=== PATIENT | female | born 1975 | race Caucasian/White ===

== ENCOUNTER 2023-12-24 08:11 | Emergency (ER) | payer SELFPAY ==
[2023-12-24] VITALS (13 sets, daily range): BP systolic 123–149; BP diastolic 82–124; PULSE 92–113; RESP 14–22; TEMP 36.9; O2SAT 93–96
--- NOTE | 2023-12-24 08:18 | ECG_ITS ---
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 Measurements Intervals [place] Rate: 109 P: 69 ID: [id number] QRS: -34 QRSD: 89 T: 52 QT: 333 QTc: 449 Interpretive Statements SINUS TACHYCARDIA POSSIBLE LEFT ATRIAL ENLARGEMENT [-0.1mV P-WAVE IN V1/V2] LEFT AXIS DEVIATION [QRS AXIS < -30] LOW QRS VOLTAGE IN PRECORDIAL LEADS [QRS DEFLECTION < 1.0 mV IN CHEST LEADS] POSSIBLE RIGHT VENTRICULAR CONDUCTION DELAY [RSR (QR) IN V1/V2] POSSIBLE ANTERIOR MYOCARDIAL INFARCTION , PROBABLY OLD [30 ms Q WAVE IN V3/V4, OR R < 0.2 mV IN V4] No previous ECG available for comparison Electronically Signed On 12-24-2023 17:20:29 CDT by Yg Moon M.D. [id number]
--- NOTE | 2023-12-24 08:20 | XRR_ITS ---
PROCEDURE INFORMATION: Exam: XR Chest Exam date and time: 12/24/2023 8:47 AM Age: 48 years old Clinical indication: Pain; Angina pectoris; Additional info: Chest pain TECHNIQUE: Imaging protocol: Radiologic exam of the chest. Views: 1 view. COMPARISON: No relevant prior studies available. FINDINGS: Lungs: Minimal lung base atelectasis or scarring. A few minute calcified lung nodules are seen incidentally. No consolidation. Pleural spaces: Unremarkable. No pleural effusion. No pneumothorax. Heart/Mediastinum: Unremarkable. No cardiomegaly. Bones/joints: Unremarkable. XR/XR chest 1V portable [id number] IMPRESSION: No acute findings.
--- NOTE | 2023-12-24 08:35 | ED_ITS ---
HPI - General Adult 2 General: Chief complaint: Chest Pain Stated complaint: Chest pains Time Seen by Provider: 12/24/23 08:19 Source: patient Mode of arrival: ambulatory History of Present Illness: 48-year-old female [facility] complaining of chest discomfort and shortness of breath started last night she feels like she has something poking her in the back. He states she has difficulty with deep breathing. No history of coronary artery disease she denies any productive cough she does smoke 2 packs a day and has a history of COPD she uses Combivent and albuterol. Does have remote history of DVT not currently on any anticoagulants. Onset (ago): hour(s) Associated symptoms: Reports chest pain, cough and short of breath; Deny confusion, diaphoresis, decreased appetite, dyspnea, fevers/chills, headache(s), malaise, nausea, rash, palpitations, seizures, syncope, vomiting or weakness Review of Systems 2 Const: Denies: fever(s), chills, malaise or diaphoresis Card: Reports: chest pain; Denies: palpitations or syncope Resp: Denies: dyspnea GI: Denies: abdominal pain, nausea or vomiting : Denies: dysuria, urinary frequency or urinary urgency Musc: Denies: neck pain or back pain Skin/Breast: Denies: rash Neuro: Denies: headache(s) or confusion Physical Exam 2 Const: GENERAL APPEARANCE: cooperative and comfortable O RIENTATION/CONSCIOUSNESS: Yes awake, Yes oriented to person, Yes oriented to place and Yes oriented to time HENMT: COMMON NORMALS: normocephalic, atraumatic and hearing grossly normal bilaterally HEAD & SCALP: normocephalic and atraumatic Resp: COMMON NORMALS: normal respiratory effort, No retractions, No use of accessory muscles and clear to auscultation bilaterally AUSCULTATION: clear to auscultation bilaterally Cardio: COMMON NORMALS: regular rate, regular rhythm and No murmurs present (Cardio) RATE: regular rate RHYTHM: regular rhythm GI: COMMON NORMALS: Soft to palpation and No hepatosplenomegaly present A USCULTATION: Yes normoactive bowel sounds PALPATION: Yes Soft to palpation, No Tenderness to palpation present (GI), No Guarding due to palpation present (GI) and Yes No hepatosplenomegaly present : COMMON NORMALS: Yes no CVA tenderness BLADDER/KIDNEY EXAM: Yes no CVA tenderness Back/Pelvis: COMMON NORMALS: no CVA tenderness Extremity: COMMON NORMALS: normal to inspection, capillary refill normal, no clubbing, cyanosis or edema, no calf tenderness and no pedal edema Neuro: SENSORIUM/ORIENTATION: Yes oriented to person, Yes oriented to place and Yes oriented to time Skin: COMMON NORMALS: no rashes or lesions noted GENERAL SKIN EXAM: no rashes or lesions noted Course 2 Vital Signs: Vital signs: Vital Signs Temperature 98.4 F 12/24/23 08:20 Pulse Rate 92 12/24/23 12:30 Respiratory Rate 14 12/24/23 12:30 Blood Pressure 131/83 12/24/23 13:00 Pulse Oximetry 94 12/24/23 12:30 Oxygen Delivery Me thod Room Air 12/24/23 08:20 MDM - General Adult Medical Decision Making Labs and imaging reviewed. CT does not show any obstruction or pyelonephritis. White count is 19,000 she has not been running a fever. D-dimer was negative she also complained of some chest discomfort and her cardiac enzymes and EKG were normal. She is given IV fluids will start her on antibiotics given initial dose of ceftriaxone and will discharge her home to start on Cipro tomorrow given diclofenac and promethazine. Return if has further problems cultures were done. Vital signs stable at time of discharge. Medical Records I reviewed the patient's medical records. Lab Data I reviewed the patient's lab results. 12/24/23 08:39 12/24/23 08:39 Radiology Impressions Chest X-Ray 12/24/23 08:20 IMPRESSION: No acute findings. Abdomen/Pelvis CT 12/24/23 11:00 IMPRESSION: 1. Mild bladder wall thickening. Correlation for cystitis. 2. RIGHT ovarian cyst measuring 2.9 cm. No free fluid. 3. Diastases of the rectus abdominous with prior hernia repair. No recurrent hernia. Laboratory Results WBC 19.27 10^3/uL (3.29-11.43) H 12/24/23 08:39 RBC 5.07 10^6/uL (3.85-5.65) 12/24/23 08:39 Hgb 16.40 g/dL (11.27-16.99) 12/24/23 08:39 Hct 47.8 % (36-47) H 12/24/23 08:39 MCV 94.3 fl (85-98) 12/24/23 08:39 MCH 32.3 pg (27-33) 12/24/23 08:39 MCHC 34.3 g/dL (30-55) 12/24/23 08:39 RDW 13.2 % (12.1-15.1) 12/24/23 08:39 Plt Count 357 10^3/cmm (157-399) 12/24/23 08:39 MPV 10.6 fL (7.4-10.4) H 12/24/23 08:39 Neut % (Auto) 70.0 % 12/24/23 08:39 Lymph % (Auto) 18.6 % 12/24/23 08:39 [place] % (Auto) 6.9 % 12/24/23 08:39 Eos % (Auto) 3.3 % 12/24/23 08:39 Baso % (Auto) 0.7 % 12/24/23 08:39 Neut # (Auto) 13.50 10^3/uL (1.8-7.7) H 12/24/23 08:39 Lymph # (Auto) 3.6 10^3/uL (0.8-4.8) 12/24/23 08:39 [place] # (Auto) 1.3 10^3/uL (0.2-0.9) H 12/24/23 08:39 Eos # (Auto) 0.6 10^3/uL (0.0-0.8) 12/24/23 08:39 Baso # (Auto) 0.1 10^3/uL (0.0-0.1) 12/24/23 08:39 Nucleated RBC % (auto) 0 % 12/24/23 08:39 Nucleated RBCs # 0.0 /100WBC 12/24/23 08:39 D-Dimer <= 0.27 ug/mLFEU (0-0.59) 12/24/23 08:39 Sodium 133 mmol/L (136-145) L 12/24/23 08:39 Potassium 4.1 mmol/L (3.5-5.1) 12/24/23 08:39 Chloride 95 mmol/L (98-107) L 12/24/23 08:39 Carbon Dioxide 24 mmol/L (22-29) 12/24/23 08:39 Anion Gap 18.1 (5-19) 12/24/23 08:39 BUN 11 mg/dL (6-20) 12/24/23 08:39 Creatinine 0.7 mg/dL (0.5-0.9) 12/24/23 08:39 GFR Calculation 89.7 mL/min (90-130) L 12/24/23 08:39 Glucose 324 mg/dL (65-115) H 12/24/23 08:39 Calculated Osmolality 288 mOsm/kg (285-295) 12/24/23 08:39 Calcium 9.1 mg/dL (8.5-10.5) 12/24/23 08:39 Total Bilirubin 0.2 mg/dL (0.15-1.2) 12/24/23 08:39 AST 17 U/L (0-32) 12/24/23 08:39 ALT 21 U/L (0-33) 12/24/23 08:39 Alkaline Phosphatase 104 U/L (35-105) 12/24/23 08:39 Troponin T Baseline 8 ng/L (0-10) 12/24/23 08:39 Troponin T 120 Minute 6.48 ng/L (0-10) 12/24/23 10:16 Delta Troponin T -1.52 ABS# (0-10) L 12/24/23 10:16 Total Protein 7.7 g/dL (6.6-8.7) 12/24/23 08:39 Albumin 4.3 g/dL (3.5-5.2) 12/24/23 08:39 Globulin 3.4 g/dL (1.3-4.6) 12/24/23 08:39 Urine Color Yellow (Yellow) 12/24/23 10:03 Urine Appearance Cloudy (CLEAR) A 12/24/23 10:03 Urine pH 6 (5-7) 12/24/23 10:03 Ur Specific [place] 1.020 (1.005-1.030) 12/24/23 10:03 Urine Protein Neg (Negative) 12/24/23 10:03 Urine Glucose (UA) 4+ (Normal) H 12/24/23 10:03 Urine Ketones Negative (Negative) 12/24/23 10:03 Urine Blood Trace (Negative) H 12/24/23 10:03 Urine Nitrate Positive (Negative) H 12/24/23 10:03 Urine Bilirubin Neg (Negative) 12/24/23 10:03 Urine Urobilinogen Norm mg/dL (Negative) 12/24/23 10:03 Ur Leukocyte Esterase Negative (Negative) 12/24/23 10:03 Urine RBC 5-10 /hpf (0-2) H 12/24/23 10:03 Urine WBC 25-40 /hpf (0-5) H 12/24/23 10:03 Ur Squamous Epith Cells 0-4 /hpf (0-5) H 12/24/23 10:03 Amorphous Sediment Not Reportable 12/24/23 10:03 Urine Bacteria 2+ /hpf (NONE) H 12/24/23 10:03 All radiology interpretation(s) finalized by discharge Discharge Plan Discharge Patient Disposition: Home Clinical Impression: Cystitis Condition: Stable Prescriptions: New Cipro 500 mg tablet 500 mg PO Q12H Qty: 20 0RF promethazine 25 mg tablet 25 mg PO Q6H PRN (Reason: nausea and vomiting) Qty: 20 0RF diclofenac sodium 75 mg tablet,delayed release (DR/EC) 75 mg PO Q12H PRN (Reason: pain) Qty: 20 0RF No Action naproxen sodium 220 mg Tablet 220 mg PO Q8H PRN (Reason: Pain) Discharge Orders: Discharge ED (Routine); Ordered 12/24/23 Ordered By: Sorin Hodges Discharge Diet: Usual diet Discharge Activity: Resume usual activity Patient Instructions: Opioid Safety, Pain Management Activity Restrictions/Additional Instructions: Thank you for choosing [facility] for your healthcare needs today. It is very important that you follow up as instructed or that you return to the Emergency Department should you have concerns or if your condition changes or worsens in any way. You were seen in the emergency room for abdominal discomfort. You did have an elevated white count your urine showed signs of infection CT of your abdomen did not show obstruction or stones. Your cardiac enzymes and EKG were normal. No be discharged home with pain medications antibiotics and nausea medicines. If your symptoms worsen or change return to the emergency room Coding Level of Care Code ED New Account Interviewer for Shane Wilson
[2023-12-24 08:49] LABS: Basophils # 0.1 10^3/uL (0.0-0.1); Basophils % 0.7 %; Eosinophils # 0.6 10^3/uL (0.0-0.8); Eosinophils % 3.3 %; Hematocrit 47.8 % (36-47); Lymphocytes # 3.6 10^3/uL (0.8-4.8); Lymphocytes % 18.6 %; Mean Corpuscular HGB Conc 34.3 g/dL (30-55); Mean Corpuscular Hemoglobin 32.3 pg (27-33); Mean Corpuscular Volume 94.3 fl (85-98); Mean Platelet Volume 10.6 fL (7.4-10.4); Monocytes # 1.3 10^3/uL (0.2-0.9); Monocytes % 6.9 %; Nucleated Red Blood Cells % 0 %; Platelet Count 357 10^3/cmm (157-399); Red Blood Count 5.07 10^6/uL (3.85-5.65); Red Cell Distribution Width 13.2 % (12.1-15.1); White Blood Count 19.27 10^3/uL (3.29-11.43)
[2023-12-24 09:04] LABS: D Dimer <= 0.27 ug/mLFEU (0-0.59)
[2023-12-24 09:07] LABS: Alanine Aminotransferase 21 U/L (0-33); Albumin Level 4.3 g/dL (3.5-5.2); Alkaline Phosphatase 104 U/L (35-105); Anion Gap 18.1 (5-19); Aspartate Amino Transferase 17 U/L (0-32); Blood Urea Nitrogen 11 mg/dL (6-20); Calcium 9.1 mg/dL (8.5-10.5); Carbon Dioxide 24 mmol/L (22-29); Chloride 95 mmol/L (98-107); Globulin 3.4 g/dL (1.3-4.6); Glomerular Filtration Rate 89.7 mL/min (90-130); Glucose 324 mg/dL (65-115); Osmolality Calculated 288 mOsm/kg (285-295); Potassium 4.1 mmol/L (3.5-5.1); Sodium 133 mmol/L (136-145); Total Bilirubin 0.2 mg/dL (0.15-1.2); Total Protein 7.7 g/dL (6.6-8.7); Troponin(5th) Baseline 8 ng/L (0-10)
[2023-12-24 10:49] LABS: Troponin 5 2HR 6.48 ng/L (0-10)
[2023-12-24 10:51] LABS: Troponin 5 2HR Delta -1.52 ABS# (0-10)
[2023-12-24 10:55] LABS: Add Urine Microscopic? YES; Bilirubin Urine Neg (Negative); Blood Urine Trace (Negative); Glucose Urine UA 4+ (Normal); Ketones Urine Negative (Negative); Leukocyte Esterase Urine Negative (Negative); Nitrate Urine Positive (Negative); Protein Urine Neg (Negative); Urine Appearance Cloudy (CLEAR); Urine Color Yellow (Yellow); Urobilinogen Urine Norm (Negative); pH Urine 6 (5-7)
[2023-12-24 10:56] LABS: Add Urine Culture? Yes; Bacteria Urine 2+ /hpf; Squamous Epithelial Cell Urine 0-4 /hpf (0-5); WBC Urine 25-40 /hpf (0-5)
--- NOTE | 2023-12-24 11:00 | CT_ITS ---
WS: [id number] CT ABDOMEN PELVIS TECHNIQUE: Noncontrast CT of the abdomen and pelvis with coronal and sagittal reformatted images. CLINICAL INFORMATION: flank pain COMPARISON: None. DLP: 845.[address] scans at [facility] use at least one of these dose optimization techniques: automated e xposure control; mA and/or kV adjustment per patient size (includes targeted exams where dose is matc hed to clinical indication); or iterative reconstruction. FINDINGS: Lung bases are well aerated. Hepatomegaly. Air-fluid levels in the stomach. Fluid distended stomach. No evidence of small or large bowel obstruction. Noncontrast spleen. Normal noncontrast pancreas. Gal lbladder is contracted. Normal caliber abdominal aorta. Adrenal glands are normal. No hydronephrosis in either kidney. No obstructing renal or ureteral calculi. A few pelvic phleboliths. Mild vascular c alcification. Normal sigmoid colon. Evidence of prior appendectomy. No free fluid in the abdomen or pelvis. Mild bl adder wall thickening. Recommend correlation for cystitis. Anteverted uterus with endometrial thicken ing. This is likely physiologic in a patient this age. RIGHT ovarian cyst measuring 2.9 cm. No free f luid. Smaller LEFT ovarian cyst. Diastases the rectus abdominis with evidence of prior hernia repair. No evidence of entrapped bowel. No visualized recurrent hernia. CT/CT kidney stone [id number] IMPRESSION: 1. Mild bladder wall thickening. Correlation for cystitis. 2. RIGHT ovarian cyst measuring 2.9 cm. No free fluid. 3. Diastases of the rectus abdominous with prior hernia repair. No recurrent h ernia.
[2023-12-24] MEDS: cefTRIAXone 1,000 MG in sodium chloride 0.9% (plus) 50 ML 100 MG IV (11:05)
[2023-12-24] MEDS: morphine 4 mg/mL SDV 1 mL 2 MG IVP (11:26)
[2023-12-24] MEDS: metoclopramide 5 mg/mL SDV 2 mL 10 MG IVP (11:26)
--- NOTE | 2023-12-24 11:28 | ECG_ITS ---
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 Measurements Intervals [place] Rate: 101 P: 72 HI: 152 QRS: -39 QRSD: 92 T: 60 QT: 340 QTc: 442 Interpretive Statements SINUS TACHYCARDIA LEFT AXIS DEVIATION [QRS AXIS < -30] LOW QRS VOLTAGE IN PRECORDIAL LEADS [QRS DEFLECTION < 1.0 mV IN CHEST LEADS] POSSIBLE RIGHT VENTRICULAR CONDUCTION DELAY [RSR (QR) IN V1/V2] Compared to ECG 12/24/2023 08:18:16 Myocardial infarct finding no longer present Electronically Signed On 12-24-2023 17:23:48 CDT by Yg Moon M.D. [id number]
== END 2023-12-24 13:35 | disposition home or self-care (01) ==
PROVIDERS: Emergency Provider Family Medicine
DX: N30.90 Cystitis, unspecified without hematuria (principal); R07.89 Other chest pain; J44.9 Chronic obstructive pulmonary disease, unspecified; Z79.899 Other long term (current) drug therapy; F17.210 Nicotine dependence, cigarettes, uncomplicated
CPT/HCPCS: 36415; 71045; 74176; 80053; 81001; 84484; 85025; 85378; 87077; 87086; 87186; 93005; 96374; 96375; 99285; J0696; J2270; J2765

== ENCOUNTER 2024-03-04 01:22 | Emergency (ER) | payer SELFPAY ==
[2024-03-04 01:41] VITALS: BP 147/94; PULSE 94; RESP 18; TEMP 36.7; O2SAT 95; BMI 33.6
[2024-03-04 02:00] VITALS: BP 144/94; PULSE 100; RESP 12; O2SAT 94
--- NOTE | 2024-03-04 02:01 | XRR_ITS ---
PROCEDURE INFORMATION: Exam: XR Chest Exam date and time: 03/04/2024 2:18 AM Age: 48 years old Clinical indication: Dyspnea; Additional info: Chest pain dyspnea TECHNIQUE: Imaging protocol: Radiologic exam of the chest. Views: 1 view. COMPARISON: CR XR chest 1V portable [id number] 12/24/2023 8:47 AM FINDINGS: Lungs: The lung parenchyma is clear. Pleural spaces: No pneumothorax. No large pleural effusion. Heart/Mediastinum: The cardiomediastinal silhouette is within normal limits. Bones/joints: Unremarkable. XR/XR chest 1V portable [id number] IMPRESSION: No acute cardiopulmonary abnormality.
--- NOTE | 2024-03-04 02:02 | ECG_ITS ---
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 Measurements Intervals [place] Rate: 100 P: 64 NE: 168 QRS: -26 QRSD: 91 T: 22 QT: 361 QTc: 466 Interpretive Statements SINUS TACHYCARDIA LOW QRS VOLTAGE IN PRECORDIAL LEADS [QRS DEFLECTION < 1.0 mV IN CHEST LEADS] POSSIBLE RIGHT VENTRICULAR CONDUCTION DELAY [RSR (QR) IN V1/V2] POSSIBLE ANTERIOR MYOCARDIAL INFARCTION , PROBABLY OLD [30 ms Q WAVE IN V3/V4, OR R < 0.2 mV IN V4] ABNORMAL RHYTHM ECG Compared to ECG 12/24/2023 11:28:20 Myocardial infarct finding now present Left-axis deviation no longer present Electronically Signed On 03-05-2024 0:16:04 CDT by Sarina Selby M.D. [id number]
--- NOTE | 2024-03-04 02:02 | ED_ITS ---
HPI - SOB/Dyspnea 2 General: Chief Complaint: Shortness of Breath/Dyspnea Stated Complaint: SOB Time Seen by Provider: 03/04/24 01:41 History of Present Illness: HPI Narrative: Patient presents to the ER complaining of shortness of breath for the last couple days. She thinks an abscessed tooth popped in her mouth when she aspirated the infection and she been going downhill ever since. Patient also states she has been having some chest pressure that feels like an elephant sitting on her chest. Patient did borrow one of her neighbors inhalers and took a couple puffs off of it which seemed to help slightly. Related Data Home Medications Medication Instructions Recorded Confirmed naproxen sodium 220 mg tablet 220 mg PO Q8H PRN Pain 12/24/23 12/24/23 Previous Rx's Medication Instructions Recorded diclofenac sodium 75 mg 75 mg PO Q12H PRN pain #20 tabs 12/24/23 tablet,delayed release promethazine 25 mg tablet 25 mg PO Q6H PRN nausea and 12/24/23 vomiting #20 tabs cephalexin 500 mg capsule 500 mg PO Q6H 7 days #28 caps 03/04/24 Allergies Allergy/AdvReac Type Severity Reaction Status Date / Time banks erwin Allergy ADR-Vomitin Verified 03/04/24 01:45 g ondansetron [From Zofran] Allergy ADR-Vomitin Verified 03/04/24 01:45 g piperacillin Allergy Unknown Verified 03/04/24 01:45 red dye Allergy ALGY-Hives Verified 03/04/24 01:45 paper tape Allergy Unknown Uncoded 03/04/24 01:45 Review of Systems 2 General: Reports: 10 or more systems reviewed and unremarkable except in HPI and below [facility] ED 2 Female Reproductive History: Date of last menstrual period: 02/12/24 Physical Exam 2 Const: COMMON NORMALS: no acute distress, average body habitus, patient oriented x3, no limitations, healthy appearing, alert and well nourished HENMT: COMMON NORMALS: normocephalic, atraumatic, hearing grossly normal bilaterally, external ears normal, Normal external nose present and moist oral mucous membranes HEAD & SCALP: normocephalic and atraumatic NOSE: Normal external nose present EXTERNAL EAR: Yes external ears normal Neck/C-Spine: COMMON NORMALS: no JVD Chest: COMMONS NORMALS: normal inspection of the chest and normal palpation of entire chest wall Resp: COMMON NORMALS: normal respiratory effort, No retractions and No use of accessory muscles; negative for clear to auscultation bilaterally (Occasional wheeze bilaterally) AUSCULTATION: not clear to auscultation bilaterally (Occasional wheeze bilaterally) Cardio: COMMON NORMALS: no JVD, regular rate, regular rhythm, S1 normal heart sound present, S2 normal heart sound present, No gallops present (Cardio), No clicks present (Cardio), No murmurs present (Cardio) and No rub (Cardio) R ATE: regular rate RHYTHM: regular rhythm HEART SOUNDS: S1 normal heart sound present and S2 normal heart sound present GI: COMMON NORMALS: Normal to inspection, nondistended, normoactive bowel sounds present, Soft to palpation, non-tender, No hepatosplenomegaly present and no masses PALPATION: Yes Soft to palpation and Yes No hepatosplenomegaly present Neuro: COMMON NORMALS: patient oriented x3 SENSORIUM/ORIENTATION: Yes alert Course 2 Vital Signs: Vital signs: Vital Signs Temperature 98.0 F 03/04/24 01:41 Pulse Rate 96 03/04/24 04:01 Respiratory Rate 14 03/04/24 04:01 Blood Pressure 137/86 03/04/24 04:01 Pulse Oximetry 92 03/04/24 04:01 Oxygen Delivery Me thod Room Air 03/04/24 01:41 MDM - SOB/Dyspnea Medical Decision Making Patient had lab work that included CBC CMP cardiac enzymes, troponin, EKG, chest x-ray all which were essentially benign. Patient will be given a dose of Keflex while she is here and a prescription sent to her pharmacy. Differential Diagnosis Likely acute exacerbation of chronic obstructive airways disease Medical Records I reviewed the patient's medical records. Lab Data I reviewed the patient's lab results. 03/04/24 02:10 03/04/24 02:31 Labs/Radiology: Radiology Impressions Chest X-Ray 03/04/24 02:01 IMPRESSION: No acute cardiopulmonary abnormality. Laboratory Results WBC 10.65 10^3/uL (3.29-11.43) 03/04/24 02:10 RBC 4.69 10^6/uL (3.85-5.65) 03/04/24 02:10 Hgb 15.40 g/dL (11.27-16.99) 03/04/24 02:10 Hct 45.0 % (36-47) 03/04/24 02:10 MCV 95.9 fl (85-98) 03/04/24 02:10 MCH 32.8 pg (27-33) 03/04/24 02:10 MCHC 34.2 g/dL (30-55) 03/04/24 02:10 RDW 13.0 % (12.1-15.1) 03/04/24 02:10 Plt Count 239 10^3/cmm (157-399) 03/04/24 02:10 MPV 11.2 fL (7.4-10.4) H 03/04/24 02:10 Neut % (Auto) 43.5 % 03/04/24 02:10 Lymph % (Auto) 37.3 % 03/04/24 02:10 [place] % (Auto) 9.9 % 03/04/24 02:10 Eos % (Auto) 7.8 % 03/04/24 02:10 Baso % (Auto) 1.2 % 03/04/24 02:10 Neut # (Auto) 4.64 10^3/uL (1.8-7.7) 03/04/24 02:10 Lymph # (Auto) 4.0 10^3/uL (0.8-4.8) 03/04/24 02:10 [place] # (Auto) 1.1 10^3/uL (0.2-0.9) H 03/04/24 02:10 Eos # (Auto) 0.8 10^3/uL (0.0-0.8) 03/04/24 02:10 Baso # (Auto) 0.1 10^3/uL (0.0-0.1) 03/04/24 02:10 Nucleated RBC % (auto) 0 % 03/04/24 02:10 Nucleated RBCs # 0.0 /100WBC 03/04/24 02:10 Sodium 136 mmol/L (136-145) 03/04/24 02:31 Potassium 3.8 mmol/L (3.5-5.1) 03/04/24 02:31 Chloride 101 mmol/L (98-107) 03/04/24 02:31 Carbon Dioxide 24 mmol/L (22-29) 03/04/24 02:31 Anion Gap 14.8 (5-19) 03/04/24 02:31 BUN 20 mg/dL (6-20) 03/04/24 02:31 Creatinine 0.7 mg/dL (0.5-0.9) 03/04/24 02:31 GFR Calculation 89.7 mL/min (90-130) L 03/04/24 02:31 Glucose 236 mg/dL (65-115) H 03/04/24 02:31 Calculated Osmolality 292 mOsm/kg (285-295) 03/04/24 02:31 Calcium 8.8 mg/dL (8.5-10.5) 03/04/24 02:31 Total Bilirubin 0.2 mg/dL (0.15-1.2) 03/04/24 02:31 AST 15 U/L (0-32) 03/04/24 02:31 ALT 22 U/L (0-33) 03/04/24 02:31 Alkaline Phosphatase 100 U/L (35-105) 03/04/24 02:31 Troponin T Baseline < 6 ng/L (0-10) 03/04/24 02:10 Troponin T 120 Minute 6.00 ng/L (0-10) 03/04/24 04:03 Delta Troponin T 0.17920 ABS# (0-10) 03/04/24 04:03 Total Protein 7.2 g/dL (6.6-8.7) 03/04/24 02:31 Albumin 4.0 g/dL (3.5-5.2) 03/04/24 02:31 Globulin 3.2 g/dL (1.3-4.6) 03/04/24 02:31 All radiology interpretation(s) finalized by discharge Discharge Plan Discharge Patient Disposition: Home Clinical Impression: Abscess, dental Chest pain Qualifiers: Chest pain type: unspecified Qualified Code(s): R07.9 - Chest pain, unspecified Condition: Stable Prescriptions: New cephalexin 500 mg capsule 500 mg PO Q6H 7 Days Qty: 28 0RF Discontinued ciprofloxacin HCl [Cipro] 500 mg tablet 500 mg PO Q12H Qty: 20 0RF No Action naproxen sodium 220 mg Tablet 220 mg PO Q8H PRN (Reason: Pain) promethazine 25 mg tablet 25 mg PO Q6H PRN (Reason: nausea and vomiting) Qty: 20 0RF diclofenac sodium 75 mg tablet,delayed release (DR/EC) 75 mg PO Q12H PRN (Reason: pain) Qty: 20 0RF Discharge Orders: Discharge ED (Routine); Ordered 03/04/24 Ordered By: Bakari Barrios Patient Instructions: Chest Pain (ED), Dental Abscess (ED) Activity Restrictions/Additional Instructions: Please take all your antibiotics as prescribed. Please follow-up with your family practitioner within next 7 to 10 days for further evaluation and treatment. Your lab work did not reveal any acute cardiac cause of your chest pain. Your chest pain is felt to be noncardiac in nature. Coding Level of Care Code ED Business Services Sales Agent for Shane Wilson
[2024-03-04 02:14] LABS: Basophils # 0.1 10^3/uL (0.0-0.1); Basophils % 1.2 %; Eosinophils # 0.8 10^3/uL (0.0-0.8); Eosinophils % 7.8 %; Lymphocytes % 37.3 %; Mean Corpuscular HGB Conc 34.2 g/dL (30-55); Mean Corpuscular Hemoglobin 32.8 pg (27-33); Mean Corpuscular Volume 95.9 fl (85-98); Mean Platelet Volume 11.2 fL (7.4-10.4); Monocytes # 1.1 10^3/uL (0.2-0.9); Monocytes % 9.9 %; Neutrophils # 4.64 10^3/uL (1.8-7.7); Neutrophils % 43.5 %; Nucleated Red Blood Cells % 0 %; Platelet Count 239 10^3/cmm (157-399); Red Blood Count 4.69 10^6/uL (3.85-5.65); White Blood Count 10.65 10^3/uL (3.29-11.43)
[2024-03-04 02:38] LABS: Troponin(5th) Baseline < 6 ng/L (0-10)
[2024-03-04 02:59] LABS: Alanine Aminotransferase 22 U/L (0-33); Alkaline Phosphatase 100 U/L (35-105); Anion Gap 14.8 (5-19); Aspartate Amino Transferase 15 U/L (0-32); Blood Urea Nitrogen 20 mg/dL (6-20); Calcium 8.8 mg/dL (8.5-10.5); Carbon Dioxide 24 mmol/L (22-29); Chloride 101 mmol/L (98-107); Creatinine Clr Calc Pharmacy 111.1255; Globulin 3.2 g/dL (1.3-4.6); Glomerular Filtration Rate 89.7 mL/min (90-130); Glucose 236 mg/dL (65-115); Osmolality Calculated 292 mOsm/kg (285-295); Potassium 3.8 mmol/L (3.5-5.1); Sodium 136 mmol/L (136-145); Total Bilirubin 0.2 mg/dL (0.15-1.2); Total Protein 7.2 g/dL (6.6-8.7)
[2024-03-04 03:00] VITALS: BP 138/81; PULSE 95; RESP 14; O2SAT 94
[2024-03-04 03:30] VITALS: BP 124/67; PULSE 91; RESP 14; O2SAT 92
[2024-03-04 04:01] VITALS: BP 137/86; PULSE 96; RESP 14; O2SAT 92
--- NOTE | 2024-03-04 04:02 | ECG_ITS ---
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 Measurements Intervals [place] Rate: 88 P: 60 IA: 179 QRS: -26 QRSD: 98 T: 42 QT: 374 QTc: 454 Interpretive Statements SINUS RHYTHM LOW QRS VOLTAGE IN PRECORDIAL LEADS [QRS DEFLECTION < 1.0 mV IN CHEST LEADS] INCOMPLETE RIGHT BUNDLE BRANCH BLOCK [90+ ms QRS DURATION, TERMINAL R IN V1/V2, 40+ ms S IN I/aVL/V4/V5/V6] POSSIBLE ANTERIOR MYOCARDIAL INFARCTION , PROBABLY OLD [30 ms Q WAVE IN V3/V4, OR R < 0.2 mV IN V4] Compared to ECG 03/04/2024 02:12:30 Incomplete right bundle-branch block now present Sinus tachycardia no longer present Myocardial infarct finding still present Electronically Signed On 03-05-2024 0:21:42 CDT by Sarina Selby M.D. [id number]
[2024-03-04 04:30] VITALS: BP 153/94; PULSE 93; RESP 16; O2SAT 93
[2024-03-04 04:36] LABS: Troponin 5 2HR Delta 0.00001 ABS# (0-10)
[2024-03-04] MEDS: cephALEXin 500 mg Capsule PO (04:49)
== END 2024-03-04 04:52 | disposition home or self-care (01) ==
PROVIDERS: Emergency Provider Emergency Medicine
DX: K04.7 Periapical abscess without sinus (principal); R07.9 Chest pain, unspecified
CPT/HCPCS: 36415; 71045; 80053; 84484; 85025; 93005; 99285

== ENCOUNTER 2024-04-26 12:43 | Emergency (ER) | payer SELFPAY ==
--- NOTE | 2024-04-26 14:20 | CTR_ITS ---
PROCEDURE INFORMATION: Exam: CT Abdomen And Pelvis With Contrast Exam date and time: 04/26/2024 4:14 PM Age: 48 years old Clinical indication: Abdominal pain; Localized; Right upper quadrant (ruq); TECHNIQUE: Imaging protocol: Computed tomography of the abdomen and pelvis with contrast. Radiation optimization: All CT scans at this facility use at least one of these dose optimization techniques: automated exposure control; mA and/or kV adjustment per patient size (includes targeted exams where dose is matched to clinical indication); or iterative reconstruction. Contrast material: OMNI 350; Contrast volume: 100 ml; Contrast route: INTRAVENOUS (IV); COMPARISON: CT kidney stone [id number] 12/24/2023 11:37 AM RADIATION DOSE METRICS: Total DLP (mGy-cm): 885.43 FINDINGS: Liver: Normal. No mass. Gallbladder and biliary ducts: Normal. No calcified stones. No ductal dilation. Pancreas: Normal. No ductal dilation. Spleen: Normal. No splenomegaly. Adrenal glands: Normal. No mass. Kidneys and ureters: Normal. No hydronephrosis. Stomach and bowel: Moderate stool burden. Appendix: No evidence of appendicitis. Intraperitoneal space: Unremarkable. No free air. No significant fluid collection. Vasculature: Unremarkable. No abdominal aortic aneurysm. Lymph nodes: Unremarkable. No enlarged lymph nodes. Urinary bladder: There is severe bladder wall thickening. Air is present in the bladder which may be iatrogenic in nature. Reproductive: Unremarkable as visualized. Bones/joints: Mild lateral curvature of the lumbar spine with convexity to the left. There are degenerative changes in the visualized spine. Soft tissues: Diastasis of the rectus abdominis. Large and small bowel loops extend anteriorly into the region of diastasis without evidence for strangulation or obstruction. CT/CT abdomen pelvis w con* [id number] IMPRESSION: 1. The bladder wall is thickened. This is nonspecific and may represent bladder outlet obstruction, inflammation or infection. Neoplastic process is included in the differential. 2. There is air in the bladder which may be iatrogenic in nature. Please correlate clinically.
--- NOTE | 2024-04-26 14:35 | W.ED.ABDPA2 ---
Documented by User: NICHOLE Fried 04/26/24 17:59 HPI - Abdominal Pain General: Chief Complaint: Abdominal Pain Stated Complaint: right abdominal pain radiating to back Time Seen by Provider: 04/26/24 14:10 History of Present Illness: 48-year-old female comes in today for complaints of right upper quadrant abdominal pain radiating to the back. Patient has had prior episodes in the past but not as severe as today. Patient reports pain started today about 8 AM. Patient has had some nausea without vomiting. Patient does have a history of kidney stones, ovarian cyst, endometriosis, PCOS, and abdominal adhesions. Patient takes routine medications for chronic pain and chronic back pain including naproxen, cyclobenzaprine, marijuana, and loratadine. Patient had her appendix removed and an ovarian cyst removed. Patient does continue to have her gallbladder. Related Data Home Medications Medication Instructions Recorded Confirmed naproxen sodium 220 mg tablet 220 mg PO Q8H PRN Pain 12/24/23 12/24/23 Previous Rx's Medication Instructions Recorded diclofenac sodium 75 mg 75 mg PO Q12H PRN pain #20 tabs 12/24/23 tablet,delayed release promethazine 25 mg tablet 25 mg PO Q6H PRN nausea and 12/24/23 vomiting #20 tabs levofloxacin 500 mg tablet 500 mg PO DAILY 6 days #6 tabs 04/26/24 Allergies Allergy/AdvReac Type Severity Reaction Status Date / Time cephalexin [From Keflex] Allergy ADR-Nausea Verified 04/26/24 13:33 banks erwin Allergy ADR-Vomitin Verified 04/26/24 13:33 g ondansetron [From Zofran] Allergy ADR-Vomitin Verified 04/26/24 13:33 g piperacillin Allergy Unknown Verified 04/26/24 13:33 red dye Allergy ALGY-Hives Verified 04/26/24 13:33 paper tape Allergy Unknown Uncoded 04/26/24 13:33 Review of Systems General: Reports: 10 or more systems reviewed and unremarkable except in HPI and below GI: Reports: abdominal pain Physical Exam Const: COMMON NORMALS: alert HENMT: COMMON NORMALS: normocephalic HEAD & SCALP: normocephalic Neck/C-Spine: COMMON NORMALS: full ROM Resp: COMMON NORMALS: normal respiratory effort GI: COMMON NORMALS: Soft to palpation PALPATION: Yes Soft to palpation and Yes Tenderness to palpation present (GI) Details: RUQ : BLADDER/KIDNEY EXAM: Yes CVA tenderness on the right Back/Pelvis: GENERAL BACK: Yes CVA tenderness Extremity: COMMON NORMALS: normal to inspection Neuro: SENSORIUM/ORIENTATION: Yes alert Skin: COMMON NORMALS: turgor normal GENERAL SKIN EXAM: turgor normal Course Vital Signs: Vital signs: Vital Signs Pulse Rate 89 04/26/24 18:28 Respiratory Rate 16 04/26/24 18:18 Blood Pressure 141/85 04/26/24 18:28 Pulse Oximetry 94 04/26/24 18:28 MDM - Abdominal Pain Medical Decision Making 48-year-old female comes in today with right upper quadrant abdominal pain starting this morning around 8 AM. Patient reports increased pain with movement. Patient states pain radiates to her right shoulder blade. Differential diagnosis includes but not limited to gallbladder disease, renal calculi, pancreatitis, hiatal hernia, GERD. CBC noted 12,000 white blood cell count. CMP was unremarkable. Urinalysis had increased leukocyte esterases and white blood cells. Urinalysis also had increased bacteria. CT of the abdomen and pelvis noted no significant abnormalities except bladder wall thickening with recommendations for follow-up with urology for abnormality. Reviewed this with patient and agreed with plan and recommendations. Lab Data 04/26/24 14:33 04/26/24 14:33 Labs/Radiology: Radiology Impressions Abdomen/Pelvis CT 04/26/24 14:20 IMPRESSION: 1. The bladder wall is thickened. This is nonspecific and may represent bladder outlet obstruction, inflammation or infection. Neoplastic process is included in the differential. 2. There is air in the bladder which may be iatrogenic in nature. Please correlate clinically. Laboratory Results WBC 12.55 10^3/uL (3.29-11.43) H 04/26/24 14:33 RBC 4.77 10^6/uL (3.85-5.65) 04/26/24 14:33 Hgb 15.70 g/dL (11.27-16.99) 04/26/24 14:33 Hct 45.3 % (36-47) 04/26/24 14:33 MCV 95.0 fl (85-98) 04/26/24 14: MCH 32.9 pg (27-33) 04/26/24 14:33 MCHC 34.7 g/dL (30-55) 04/26/24 14:33 RDW 12.2 % (12.1-15.1) 04/26/24 14:33 Plt Count 319 10^3/cmm (157-399) 04/26/24 14:33 MPV 10.3 fL (7.4-10.4) 04/26/24 14:33 Neut % (Auto) 51.7 % 04/26/24 14:33 Lymph % (Auto) 33.4 % 04/26/24 14:33 Alfalfa % (Auto) 8.6 % 04/26/24 14:33 Eos % (Auto) 5.5 % 04/26/24 14:33 Baso % (Auto) 0.6 % 04/26/24 14: Neut # (Auto) 6.49 10^3/uL (1.8-7.7) 04/26/24 14:33 Lymph # (Auto) 4.2 10^3/uL (0.8-4.8) 04/26/24 14:33 Alfalfa # (Auto) 1.1 10^3/uL (0.2-0.9) H 04/26/24 14:33 Eos # (Auto) 0.7 10^3/uL (0.0-0.8) 04/26/24 14:33 Baso # (Auto) 0.1 10^3/uL (0.0-0.1) 04/26/24 14:33 Nucleated RBC % (auto) 0 % 04/26/24 14:33 Nucleated RBCs # 0.0 /100WBC 04/26/24 14:33 Sodium 135 mmol/L (136-145) L 04/26/24 14:33 Potassium 3.9 mmol/L (3.5-5.1) 04/26/24 14:33 Chloride 99 mmol/L (98-107) 04/26/24 14:33 Carbon Dioxide 24 mmol/L (22-29) 04/26/24 14:33 Anion Gap 15.9 (5-19) 04/26/24 14:33 BUN 17 mg/dL (6-20) 04/26/24 14:33 Creatinine 0.6 mg/dL (0.5-0.9) 04/26/24 14:33 GFR Calculation 107.2 mL/min (90-130) 04/26/24 14:33 Glucose 179 mg/dL (65-115) H 04/26/24 14:33 Calculated Osmolality 286 mOsm/kg (285-295) 04/26/24 14:33 Calcium 9.1 mg/dL (8.5-10.5) 04/26/24 14:33 Total Bilirubin 0.2 mg/dL (0.15-1.2) 04/26/24 14:33 AST 19 U/L (0-32) 04/26/24 14:33 ALT 21 U/L (0-33) 04/26/24 14:33 Alkaline Phosphatase 94 U/L (35-105) 04/26/24 14:33 Total Protein 7.7 g/dL (6.6-8.7) 04/26/24 14:33 Albumin 4.3 g/dL (3.5-5.2) 04/26/24 14:33 Globulin 3.4 g/dL (1.3-4.6) 04/26/24 14:33 Lipase 67 U/L (13-60) H 04/26/24 14:33 HCG, Qual Negative (Negative) 04/26/24 14:33 Urine Color Yellow (Yellow) 04/26/24 13:38 Urine Appearance Clear (CLEAR) 04/26/24 13:38 Urine pH 6.0 (5-7) 04/26/24 13:38 Ur Specific [place] 1.020 (1.005-1.030) 04/26/24 13:38 Urine Protein Trace (Negative) A 04/26/24 13:38 Urine Glucose (UA) Negative (Normal) 04/26/24 13:38 Urine Ketones Negative (Negative) 04/26/24 13:38 Urine Blood Negative (Negative) 04/26/24 13:38 Urine Nitrate Negative (Negative) 04/26/24 13:38 Urine Bilirubin Negative (Negative) 04/26/24 13:38 Urine Urobilinogen 1.0 mg/dL (Negative) 04/26/24 13:38 Ur Leukocyte Esterase Trace (Negative) A 04/26/24 13:38 Urine RBC 0-2 /hpf (0-2) 04/26/24 13:38 Urine WBC 6-10 /hpf (0-5) 04/26/24 13:38 Ur Squamous Epith Cells 6-10 /hpf (0-5) 04/26/24 13:38 Amorphous Sediment Not Reportable 04/26/24 13:38 Urine Bacteria 4+ /hpf (NONE) H 04/26/24 13:38 Hyaline Casts 0.40 /lpf 04/26/24 13:38 All radiology interpretation(s) finalized by discharge Discharge Plan Discharge Patient Disposition: Home Clinical Impression: Cystitis Condition: Stable Prescriptions: New levofloxacin 500 mg tablet 500 mg PO DAILY 6 Days Qty: 6 0RF No Action naproxen sodium 220 mg Tablet 220 mg PO Q8H PRN (Reason: Pain) promethazine 25 mg tablet 25 mg PO Q6H PRN (Reason: nausea and vomiting) Qty: 20 0RF diclofenac sodium 75 mg tablet,delayed release (DR/EC) 75 mg PO Q12H PRN (Reason: pain) Qty: 20 0RF Discharge Orders: Discharge ED (Routine); Ordered 04/26/24 Ordered By: Sp Hope Discharge Diet: Usual diet Discharge Activity: Increase activity as tolerated Patient Instructions: Urinary Tract Infection in Women (ED) Activity Restrictions/Additional Instructions: Drink plenty of water and fluids. Take antibiotic as directed. Follow-up with urologist for further evaluation of abnormal CT scan. Stand Alone Forms: Work/School Release Coding Level of Care Code ED [employer] for [employer] Documented by User: Davon Dunbar DO 04/26/24 18:31 HPI - Abdominal Pain General: Chief Complaint: Abdominal Pain Stated Complaint: right abdominal pain radiating to back Time Seen by Provider: 04/26/24 14:10 Related Data Home Medications Medication Instructions Recorded Confirmed naproxen sodium 220 mg tablet 220 mg PO Q8H PRN Pain 12/24/23 12/24/23 Previous Rx's Medication Instructions Recorded diclofenac sodium 75 mg 75 mg PO Q12H PRN pain #20 tabs 12/24/23 tablet,delayed release promethazine 25 mg tablet 25 mg PO Q6H PRN nausea and 12/24/23 vomiting #20 tabs levofloxacin 500 mg tablet 500 mg PO DAILY 6 days #6 tabs 04/26/24 Allergies Allergy/AdvReac Type Severity Reaction Status Date / Time cephalexin [From Keflex] Allergy ADR-Nausea Verified 04/26/24 13:33 banks erwin Allergy ADR-Vomitin Verified 04/26/24 13:33 g ondansetron [From Zofran] Allergy ADR-Vomitin Verified 04/26/24 13:33 g piperacillin Allergy Unknown Verified 04/26/24 13:33 red dye Allergy ALGY-Hives Verified 04/26/24 13:33 paper tape Allergy Unknown Uncoded 04/26/24 13:33 Course Vital Signs: Vital signs: Vital Signs Pulse Rate 89 04/26/24 18:28 Respiratory Rate 16 04/26/24 18:18 Blood Pressure 141/85 04/26/24 18:28 Pulse Oximetry 94 04/26/24 18:28 MDM - Abdominal Pain Medical Decision Making 48-year-old female comes in today with right upper quadrant abdominal pain starting this morning around 8 AM. Patient reports increased pain with movement. Patient states pain radiates to her right shoulder blade. Differential diagnosis includes but not limited to gallbladder disease, renal calculi, pancreatitis, hiatal hernia, GERD. CBC noted 12,000 white blood cell count. CMP was unremarkable. Urinalysis had increased leukocyte esterases and white blood cells. Urinalysis also had increased bacteria. CT of the abdomen and pelvis noted no significant abnormalities except bladder wall thickening with recommendations for follow-up with urology for abnormality. Reviewed this with patient and agreed with plan and recommendations. This patient was originally seen by NICHOLE Wilcox.? I agree with his history, evaluation, and treatment. Lab Data 04/26/24 14:33 04/26/24 14:33 Labs/Radiology: Radiology Impressions Abdomen/Pelvis CT 04/26/24 14:20 IMPRESSION: 1. The bladder wall is thickened. This is nonspecific and may represent bladder outlet obstruction, inflammation or infection. Neoplastic process is included in the differential. 2. There is air in the bladder which may be iatrogenic in nature. Please correlate clinically. Laboratory Results WBC 12.55 10^3/uL (3.29-11.43) H 04/26/24 14:33 RBC 4.77 10^6/uL (3.85-5.65) 04/26/24 14:33 Hgb 15.70 g/dL (11.27-16.99) 04/26/24 14:33 Hct 45.3 % (36-47) 04/26/24 14:33 MCV 95.0 fl (85-98) 04/26/24 14: MCH 32.9 pg (27-33) 04/26/24 14: MCHC 34.7 g/dL (30-55) 04/26/24 14:33 RDW 12.2 % (12.1-15.1) 04/26/24 14:33 Plt Count 319 10^3/cmm (157-399) 04/26/24 14: MPV 10.3 fL (7.4-10.4) 04/26/24 14:33 Neut % (Auto) 51.7 % 04/26/24 14: Lymph % (Auto) 33.4 % 04/26/24 14:33 Alfalfa % (Auto) 8.6 % 04/26/24 14:33 Eos % (Auto) 5.5 % 04/26/24 14:33 Baso % (Auto) 0.6 % 04/26/24 14: Neut # (Auto) 6.49 10^3/uL (1.8-7.7) 04/26/24 14:33 Lymph # (Auto) 4.2 10^3/uL (0.8-4.8) 04/26/24 14:33 Alfalfa # (Auto) 1.1 10^3/uL (0.2-0.9) H 04/26/24 14:33 Eos # (Auto) 0.7 10^3/uL (0.0-0.8) 04/26/24 14:33 Baso # (Auto) 0.1 10^3/uL (0.0-0.1) 04/26/24 14: Nucleated RBC % (auto) 0 % 04/26/24 14: Nucleated RBCs # 0.0 /100WBC 04/26/24 14:33 Sodium 135 mmol/L (136-145) L 04/26/24 14:33 Potassium 3.9 mmol/L (3.5-5.1) 04/26/24 14:33 Chloride 99 mmol/L (98-107) 04/26/24 14:33 Carbon Dioxide 24 mmol/L (22-29) 04/26/24 14:33 Anion Gap 15.9 (5-19) 04/26/24 14:33 BUN 17 mg/dL (6-20) 04/26/24 14:33 Creatinine 0.6 mg/dL (0.5-0.9) 04/26/24 14:33 GFR Calculation 107.2 mL/min (90-130) 04/26/24 14:33 Glucose 179 mg/dL (65-115) H 04/26/24 14:33 Calculated Osmolality 286 mOsm/kg (285-295) 04/26/24 14:33 Calcium 9.1 mg/dL (8.5-10.5) 04/26/24 14:33 Total Bilirubin 0.2 mg/dL (0.15-1.2) 04/26/24 14:33 AST 19 U/L (0-32) 04/26/24 14:33 ALT 21 U/L (0-33) 04/26/24 14:33 Alkaline Phosphatase 94 U/L (35-105) 04/26/24 14:33 Total Protein 7.7 g/dL (6.6-8.7) 04/26/24 14:33 Albumin 4.3 g/dL (3.5-5.2) 04/26/24 14:33 Globulin 3.4 g/dL (1.3-4.6) 04/26/24 14:33 Lipase 67 U/L (13-60) H 04/26/24 14:33 HCG, Qual Negative (Negative) 04/26/24 14:33 Urine Color Yellow (Yellow) 04/26/24 13:38 Urine Appearance Clear (CLEAR) 04/26/24 13:38 Urine pH 6.0 (5-7) 04/26/24 13:38 Ur Specific [place] 1.020 (1.005-1.030) 04/26/24 13:38 Urine Protein Trace (Negative) A 04/26/24 13:38 Urine Glucose (UA) Negative (Normal) 04/26/24 13:38 Urine Ketones Negative (Negative) 04/26/24 13:38 Urine Blood Negative (Negative) 04/26/24 13:38 Urine Nitrate Negative (Negative) 04/26/24 13:38 Urine Bilirubin Negative (Negative) 04/26/24 13:38 Urine Urobilinogen 1.0 mg/dL (Negative) 04/26/24 13:38 Ur Leukocyte Esterase Trace (Negative) A 04/26/24 13:38 Urine RBC 0-2 /hpf (0-2) 04/26/24 13:38 Urine WBC 6-10 /hpf (0-5) 04/26/24 13:38 Ur Squamous Epith Cells 6-10 /hpf (0-5) 04/26/24 13:38 Amorphous Sediment Not Reportable 04/26/24 13:38 Urine Bacteria 4+ /hpf (NONE) H 04/26/24 13:38 Hyaline Casts 0.40 /lpf 04/26/24 13:38 Discharge Plan Discharge Patient Disposition: Home Clinical Impression: Cystitis Condition: Stable Prescriptions: New levofloxacin 500 mg tablet 500 mg PO DAILY 6 Days Qty: 6 0RF No Action naproxen sodium 220 mg Tablet 220 mg PO Q8H PRN (Reason: Pain) promethazine 25 mg tablet 25 mg PO Q6H PRN (Reason: nausea and vomiting) Qty: 20 0RF diclofenac sodium 75 mg tablet,delayed release (DR/EC) 75 mg PO Q12H PRN (Reason: pain) Qty: 20 0RF Discharge Orders: Discharge ED (Routine); Ordered 04/26/24 Ordered By: Sp Hope Discharge Diet: Usual diet Discharge Activity: Increase activity as tolerated Patient Instructions: Urinary Tract Infection in Women (ED) Activity Restrictions/Additional Instructions: Drink plenty of water and fluids. Take antibiotic as directed. Follow-up with urologist for further evaluation of abnormal CT scan. Stand Alone Forms: Work/School Release Coding Level of Care Code ED [employer] Operator for Shane Wilson
[2024-04-26 14:41] LABS: Basophils # 0.1 10^3/uL (0.0-0.1); Basophils % 0.6 %; Eosinophils # 0.7 10^3/uL (0.0-0.8); Eosinophils % 5.5 %; Hematocrit 45.3 % (36-47); Lymphocytes # 4.2 10^3/uL (0.8-4.8); Lymphocytes % 33.4 %; Mean Corpuscular HGB Conc 34.7 g/dL (30-55); Mean Corpuscular Hemoglobin 32.9 pg (27-33); Mean Platelet Volume 10.3 fL (7.4-10.4); Monocytes # 1.1 10^3/uL (0.2-0.9); Monocytes % 8.6 %; Neutrophils # 6.49 10^3/uL (1.8-7.7); Neutrophils % 51.7 %; Nucleated Red Blood Cells % 0 %; Platelet Count 319 10^3/cmm (157-399); Red Blood Count 4.77 10^6/uL (3.85-5.65); Red Cell Distribution Width 12.2 % (12.1-15.1); White Blood Count 12.55 10^3/uL (3.29-11.43)
[2024-04-26 14:49] LABS: Bilirubin Urine Negative (Negative); Blood Urine Negative (Negative); Glucose Urine UA Negative (Normal); Ketones Urine Negative (Negative); Leukocyte Esterase Urine Trace (Negative); Nitrate Urine Negative (Negative); Protein Urine Trace (Negative); Urine Appearance Clear (CLEAR); Urine Color Yellow (Yellow)
[2024-04-26 14:51] LABS: HCG, Serum Qual Negative (Negative)
[2024-04-26 14:54] LABS: Add Urine Microscopic? YES; Bacteria Urine 4+ /hpf; RBC Urine 0-2 /hpf (0-2)
[2024-04-26 14:56] LABS: Alanine Aminotransferase 21 U/L (0-33); Albumin Level 4.3 g/dL (3.5-5.2); Alkaline Phosphatase 94 U/L (35-105); Anion Gap 15.9 (5-19); Aspartate Amino Transferase 19 U/L (0-32); Blood Urea Nitrogen 17 mg/dL (6-20); Calcium 9.1 mg/dL (8.5-10.5); Carbon Dioxide 24 mmol/L (22-29); Chloride 99 mmol/L (98-107); Creatinine Clr Calc Pharmacy 124.0024; Globulin 3.4 g/dL (1.3-4.6); Glomerular Filtration Rate 107.2 mL/min (90-130); Glucose 179 mg/dL (65-115); Lipase 67 U/L (13-60); Osmolality Calculated 286 mOsm/kg (285-295); Potassium 3.9 mmol/L (3.5-5.1); Sodium 135 mmol/L (136-145); Total Bilirubin 0.2 mg/dL (0.15-1.2); Total Protein 7.7 g/dL (6.6-8.7)
[2024-04-26] MEDS: sodium chloride 0.9% 1,000 ML 999 ML IV (15:57)
[2024-04-26] MEDS: metoclopramide 5 mg/mL SDV 2 mL IVP ×2 (15:59→18:16)
[2024-04-26 16:00] VITALS: BP 118/84; PULSE 91; RESP 16; O2SAT 94; O2SAT 95
[2024-04-26] MEDS: morphine 4 mg/mL SDV 1 mL IVP ×2 (16:00→18:18)
[2024-04-26] MEDS: iohexol 350 mg/mL 500 mL Btl (per mL) IV (16:22)
[2024-04-26 18:07] VITALS: BP 129/94; PULSE 83; O2SAT 94
[2024-04-26] MEDS: levoFLOXacin 750 mg Tablet PO (18:15)
[2024-04-26 18:18] VITALS: RESP 16; O2SAT 92
[2024-04-26 18:28] VITALS: BP 141/85; PULSE 89; O2SAT 94
--- NOTE | 2024-04-27 07:44 | DCPLANNER ---
faxed referral packet to [facility] [place] [facility]
== END 2024-04-26 18:30 | disposition home or self-care (01) ==
PROVIDERS: Emergency Provider Nurse Practitioner Family
DX: N30.90 Cystitis, unspecified without hematuria (principal)
CPT/HCPCS: 74177; 80053; 81001; 83690; 84703; 85025; 96361; 96374; 96375; 96376; 99285; J2270; J2765; J7030

== ENCOUNTER 2024-12-25 07:46 | Outpatient (CLI) | payer OTHER, SELFPAY ==
--- NOTE | 2024-12-25 07:47 | NM_ITS ---
WS: [id number] NUCLEAR MEDICINE HIDA SCAN CLINICAL INFORMATION: RUQ PAIN TECHNIQUE: Following intravenous administration of 8.1 mCi of technetium 99m mebrofenin, images of the abdomen were obtained over the course of 60 minutes. Next, gallbladder ejection fraction was determined by obtaining preprandial and one-hour postprandial images of the gallbladder following oral ingestion of Ensure. COMPARISON: None. FINDINGS: Hepatomegaly. Normal hepatic uptake at 5 minutes. Normal hepatic excretion. Gallbladder is visualized by 15 minutes. No evidence of acute cholecystitis. Normal common bile duct and small bowel activity. Decreased abnormal gallbladder ejection fraction 13%. Findings compatible with gallbladder dysfunction. Recommend correlation for chronic cholecystitis. NM/NM hepatobiliary w phar* [id number] IMPRESSION: 1. Decreased gallbladder ejection fraction 13% compatible with gallbladder dys function. Recommend correlation for chronic cholecystitis. 2. Hepatomegaly.
== END 2024-12-25 07:47 | disposition home or self-care (01) ==
PROVIDERS: PCP Nurse Practitioner Family; Visit Provider Nurse Practitioner Family
DX: R74.8 Abnormal levels of other serum enzymes (principal); K82.9 Disease of gallbladder, unspecified; R16.0 Hepatomegaly, not elsewhere classified
CPT/HCPCS: 78227; A9537